=== PATIENT | female | born 1955 | race Caucasian/White ===

== ENCOUNTER 2023-07-31 07:55 | Day surgery (SDC) | payer MEDICARE, MEDICAID ==
[~2023-07-31] VITALS: Ht 157.5 cm; Wt 70.5 kg
[2023-07-31] MEDS ORDERED: MEPERIDINE 100 MG INJ. 100 MG/ML VIAL ONE (08:21)
[2023-07-31] MEDS ORDERED: GLYCOPYRROLATE 0.2 MG/ML VIAL ONE (08:21)
[2023-07-31] MEDS ORDERED: MIDAZOLAM HCL 5 MG/5 ML VIAL ONE (08:21)
[2023-07-31] MEDS ORDERED: SIMETHICONE 40 MG/0.6 ML ML ONE (08:21)
[2023-07-31 09:44] VITALS: O2SAT 99
[2023-07-31 11:31] VITALS: BP_SYST 123; PULSE 54; RESP 16
== END 2023-07-31 11:25 | disposition home or self-care (01) ==
LOC: SDS 07:55
PROVIDERS: ATTEND Colon & Rectal Surgery
DX: Z12.11 Encounter for screening for malignant neoplasm of colon (principal); D12.2 Benign neoplasm of ascending colon; K57.30 Diverticulosis of large intestine without perforation or abscess without bleeding; K43.6 Other and unspecified ventral hernia with obstruction, without gangrene; E03.9 Hypothyroidism, unspecified; E78.5 Hyperlipidemia, unspecified; Z90.49 Acquired absence of other specified parts of digestive tract; Z98.42 Cataract extraction status, left eye; Z98.41 Cataract extraction status, right eye; Z79.899 Other long term (current) drug therapy
CPT/HCPCS: 45380; 99152; 82962; 88305; G0378; J2250; J2175; J3490

== ENCOUNTER 2023-12-26 08:00 | Outpatient (CLI) | payer MEDICARE, MEDICAID ==
[~2023-12-26] VITALS: Ht 157.5 cm; Wt 72.6 kg
[2024-01-01] MEDS ORDERED: ceFAZolin SODIUM 2 GM in D5W 100 ML IV ONE (07:00)
== END 2023-12-26 12:30 | disposition home or self-care (01) ==
LOC: SLB 08:00 → EDSTATUS 01-01 13:45
PROVIDERS: ATTEND Colon & Rectal Surgery
DX: Z01.818 Encounter for other preprocedural examination (principal); K43.6 Other and unspecified ventral hernia with obstruction, without gangrene
CPT/HCPCS: 87081; J7060